=== PATIENT | female | born 1955 | race Caucasian/White ===

== ENCOUNTER 2019-10-28 18:01 | Emergency (ER) | payer BC ==
[2019-10-28 18:13] VITALS: BP 179/83; PULSE 100
[2019-10-28] MEDS ORDERED: Lidocaine 1% 10 ML MDV INJECT ONE (18:24)
--- NOTE | 2019-10-28 18:56 | EDM.PDOC ---
ED HPI GENERAL MEDICAL PROBLEM - General Chief Complaint: Head Injury Stated Complaint: SLIPPED AND FELL/HEAD LACERATION Time Seen by Provider: 10/28/19 18:18 Source of Information: Reports: Patient History Limitations: Reports: No Limitations - History of Present Illness INITIAL COMMENTS - FREE TEXT/NARRATIVE: Patient is unfortunate 63-year-old female who presents emergency Department today with complaint of head injury. Patient reports she was in her normal state of health approximately 20 minutes prior to arrival when she slipped on ice and fell backwards and hit the back of her head. Patient did not suffer loss of consciousness and not had any nausea no vomiting no duration mental status secondary to this is caused laceration and accepted which is 4 cm in length and this caused the patient to seek care in the emergency department stating Headache Pain Score (Numeric/FACES): 8 - Related Data Allergies Allergy/AdvReac Type Severity Reaction Status Date / Time Sulfa (Sulfonamide Allergy Intermediate Rash Verified 10/28/19 18:11 Antibiotics) tape Allergy Intermediate Rash Uncoded 01/10/14 12:37 Home Meds: Home Meds Aspirin [Fermin Chewable Aspirin] 81 mg PO DAILY 01/10/14 [History] Levothyroxine Sodium [Synthroid] 75 mcg PO ASDIRECTED 01/10/14 [History] Lisinopril [Zestril] 20 mg PO DAILY 01/10/14 [History] Past Medical History Cardiovascular History: Reports: Blood Clots/VTE/DVT, Hypertension Endocrine/Metabolic History: Reports: Hypothyroidism Oncologic (Cancer) History: Reports: Other (See Below) Other Oncologic History: Endometrial - Past Surgical History GI Surgical History: Reports: Hernia Repair/Other Social & Family History - Tobacco Use Smoking Status *Q: Never Smoker - Recreational Drug Use Recreational Drug Use: No - Living Situation & Occupation Living situation: Reports: Single Occupation: Employed ED ROS GENERAL - Review of Systems Review Of Systems: See Below Constitutional: Denies: Fever, Chills Neurological: Reports: Headache. Denies: Confusion, Dizziness ED EXAM, HEAD INJURY - Physical Exam Exam: See Below Exam Limited By: No Limitations General Appearance: Alert, WD/WN, Mild Distress Head: Other (4 cm linear laceration partial dermis thickness no active bleeding no foreign body noted) Nexus Criteria: Posterior, Midline Cervical Tenderness, Evidence of Intoxication , Altered Level of Consciousness, Focal Neurological Deficit, Painful Distraction Injuries Eyes: Bilateral Eye: EOMI, PERRL Ears: Normal External Exam, Normal Canal, Hearing Grossly Normal, Normal TMs Respiratory: No Respiratory Distress, Lungs Clear, Normal Breath Sounds, No Accessory Muscle Use, Chest Non-Tender Cardiovascular: Normal Peripheral Pulses, Regular Rate, Rhythm, No Edema, No Gallop, No JVD, No Murmur, No Rub GI/Abdominal Exam: Normal Bowel Sounds, Soft, Non-Tender, No Organomegaly, No Distention, No Abnormal Bruit, No Mass Back Exam: Full Range of Motion, Normal Inspection, NT Neurologic: [place] feller II-XII nml As Tested, No Motor/Sensory Deficits, Alert, Normal Mood/Affect, Oriented x 3 - [place] Coma Score Best Eye Response ([place]): (4) Open Spontaneously Best Verbal Response ([place]): (5) Oriented Best Motor Response ([place]): (6) Obeys Commands ED LACERATION/WOUND & YUKI PROC - Additional/Other Procedure(s) Other (Free Text) Procedure(s): Laceration repair: 4 cm scalp laceration, Betadine prep, local anesthesia lidocaine 1% 10 ML's wound was thoroughly cleaned with NSN Betadine, #7 elijah , dressing by nursing patient tolerated procedure well Course - Vital Signs Last Recorded V/S: Last Vital Signs Temp 98.9 F 10/28/19 18:11 Pulse 100 10/28/19 18:11 Resp 16 10/28/19 18:11 BP 179/83 H 10/28/19 18:11 Pulse Ox 99 10/28/19 18:11 - Orders/Labs/Meds Meds: Medications Discontinued Medications Generic Name Dose Route Start Last Admin Trade Name Sarthak PRN Reason Stop Dose Admin Lidocaine HCl 10 ml 10/28/19 18:24 10/28/19 18:36 Xylocaine 1% INJECT 10/28/19 18:25 10 ml ONETIME ONE Administration - Re-Assessments/Exams Free Text/Narrative Re-Assessment/Exam: 10/28/19 19:[address] "impression: #1 minimal finding within the mastoid sinus which is felt to be incidental. #2 no acute intracranial abnormalities appreciated." Departure - Departure Time of Disposition: 19:08 Disposition: Home, Self-Care 01 Condition: Good Clinical Impression: Scalp laceration Qualifiers: Encounter type: initial encounter Qualified Code(s): S01.01XA - Laceration without foreign body of scalp, initial encounter - Discharge Information Referrals: yLnette Green MD [Primary Care Provider] - Forms: ED Department Discharge Additional Instructions: Home, rest, keep wound clean and dry, clean wound daily, apply Neosporin, elijah out in 5-7 days, return as needed for worsening condition Sepsis Event Note - Evaluation Sepsis Screening Result: No Definite Risk - Focused Exam Vital Signs: Vital Signs Temp Pulse Resp BP Pulse Ox 10/28/19 18:11 98.9 F 100 16 179/83 H 99 Date Exam was Performed: 10/28/19 Time Exam was Performed: 19:05
--- NOTE | 2019-10-28 18:58 | CT ---
Head CT Technique: Multiple axial sections through the brain were obtained. Intravenous contrast was not utilized. Comparison: No prior intracranial imaging is available. Findings: Ventricles along with basal cisterns and sulci over the convexities are within normal limits for the patient's age. No abnormal parenchymal densities are seen. No evidence of intracranial hemorrhage. No midline shift or mass effect is appreciated. Bone window settings were reviewed. Visualized paranasal sinuses show nothing acute. Mild mucosal thickening is seen inferiorly within the right maxillary sinus. No acute calvarial abnormality is appreciated. Impression: 1. Minimal finding within the mastoid sinus which is felt to be incidental. 2. No acute intracranial abnormality is appreciated. Diagnostic code #2 This report was dictated in [place] Standard Time
== END 2019-10-28 19:21 | disposition home or self-care (01) ==
LOC: JD.ED 18:01
DX: S01.01XA Laceration without foreign body of scalp, initial encounter (principal); I10 Essential (primary) hypertension; Z79.82 Long term (current) use of aspirin; Z79.899 Other long term (current) drug therapy; Z88.2 Allergy status to sulfonamides; Z91.09 Other allergy status, other than to drugs and biological substances; W00.0XXA Fall on same level due to ice and snow, initial encounter
CPT/HCPCS: 12002; 70450; 99283; J2001; 99282

== ENCOUNTER 2019-11-04 10:00 | Emergency (ER) | payer BC | END 2019-11-04 10:17 | LOC: JD.ED 10:00 | DX: S01.01XD Laceration without foreign body of scalp, subsequent encounter (principal); W19.XXXD Unspecified fall, subsequent encounter | CPT/HCPCS: 99281 ==